=== PATIENT | female | born 1990 | race Two or more races ===

== ENCOUNTER 2022-01-15 15:50 | Outpatient (CLI) | payer MEDICAID, OTHER | END 2022-01-15 15:51 | disposition home or self-care (01) | LOC: BICULT 15:50 | PROVIDERS: ATTEND Family Medicine | DX: Z34.02 Encounter for supervision of normal first pregnancy, second trimester (principal); Z3A.22 22 weeks gestation of pregnancy | CPT/HCPCS: 76805 ==